=== PATIENT | male | born 1995 | race Caucasian/White ===

== ENCOUNTER 2018-07-31 10:32 | Emergency (ER) | payer SELFPAY ==
[~2018-07-31] VITALS: Ht 177.8 cm; Wt 89.8 kg
[2018-07-31 10:53] VITALS: Ht 177.8 cm; Wt 89.8 kg
[2018-07-31 12:01] VITALS: BP 124/67
== END 2018-07-31 12:01 | disposition home or self-care (01) ==
LOC: ED 10:32
DX: T23.202A Burn of second degree of left hand, unspecified site, initial encounter (principal); X08.8XXA Exposure to other specified smoke, fire and flames, initial encounter; Y93.89 Activity, other specified; Y92.89 Other specified places as the place of occurrence of the external cause; Y99.8 Other external cause status